=== PATIENT | female | born 1975 | race Caucasian/White ===

== ENCOUNTER 2021-10-26 12:26 | Emergency (ER) | payer OTHER, SELFPAY ==
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
[2021-10-26 12:38] VITALS: BP 109/53; PULSE 69; RESP 16; TEMP 36.3; O2SAT 99
== END 2021-10-26 13:20 | disposition home or self-care (01) ==
PROVIDERS: Emergency Provider Nurse Practitioner Family
DX: S16.1XXA Strain of muscle, fascia and tendon at neck level, initial encounter (principal); S60.212A Contusion of left wrist, initial encounter; S30.1XXA Contusion of abdominal wall, initial encounter; V43.53XA Car driver injured in collision with pick-up truck in traffic accident, initial encounter; F17.200 Nicotine dependence, unspecified, uncomplicated
CPT/HCPCS: 73110; 99213; G0463